=== PATIENT | male | born 1975 | race Caucasian/White ===

== ENCOUNTER 2017-03-01 18:24 | Emergency (ER) | payer OTHER ==
[~2017-03-01] VITALS: Ht 188 cm; Wt 109.0 kg
[~2017-03-01 18:24] MED LIST: AUG875 PO; HYDR-3498 PO; OMEP20TA55 PO
[2017-03-01 18:37] VITALS: Ht 188 cm; Wt 109.0 kg
[2017-03-01] MEDS ORDERED: IBUP-1542 PO (18:52)
--- NOTE | 2017-03-01 18:57 | ERD ---
ER Documentation Chief Complaint Date/Time DATE: 03/01/17 TIME: 18:54 Chief Complaint SORES ON TONGUE X 1 WEEK WITH BLEEDING AND PAIN HPI 31-year-old male presents to emergency department for complaints of tongue sores for 1 week. Patient smokes regularly. Patient denies hitting something new or different. Patient denies any fever or chills. Patient denies any sores in the throat. Patient denies any other symptoms. ROS All systems reviewed and are negative except as per history of present illness. Medications Home Meds Active Scripts Ibuprofen* (Motrin*) 600 Mg Tab, 600 MG PO Q6H Y for PAIN AND OR ELEVATED TEMP, #30 TAB Prov:MAI MCCLELLAN NP 03/01/17 Hydrocodone Bit/Acetaminophen (Anexsia 5-325 Mg Tablet) 1 Tab Tab, 1 TAB PO Q4H Y for Pain 1-5, #30 Prov:SAMANTHA POOL 06/27/15 Hydrocodone Bit/Acetaminophen (Anexsia 5-325 Mg Tablet) 1 Tab Tab, 2 TAB PO Q4H Y for Pain 6-10, #30 Prov:SAMANTHA POOL F 06/27/15 Omeprazole Magnesium (Prilosec OTC) 20 Mg Tablet.dr, 20 MG PO DAILY for 30 Days , TAB Prov:SAMANTHA POOL 06/27/15 Amoxicillin-Clavulanate K* (Augmentin*) 875 Mg Tab, 875 MG PO BID for 5 Days, TAB Prov:SAMANTHA POOL 06/27/15 Allergies Allergies: Coded Allergies: No Known Allergy (Unverified , 06/25/15) PMhx/Soc History of Surgery: Yes (nasal surgery when he was young) Anesthesia Reaction: No Hx 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 Disorder: No Hx Respiratory Disorders: No Hx Cardiac Disorders: No Hx Psychiatric Problems: No Hx Miscellaneous Medical Probl: No Hx Alcohol Use: Yes Hx Substance Use: No Hx Tobacco Use: Yes Smoking Status: Current every day smoker FmHx Family History: No coronary disease, No diabetes, No other Physical Exam Vitals Vital Signs Date Time Temp Pulse Resp B/P Pulse Ox O2 Delivery O2 Flow Rate FiO2 03/01/17 18:37 98.7 75 16 145/80 98 Physical Exam GENERAL: The patient is well developed and appropriate for usual state of health, in no apparent distress. HEENT: Atraumatic. Ears: Normal tympanic membrane, no erythema or bulging. No ear canal swelling. No ear discharge. Nose: normal nasal turbinates, no erythema or swelling. Normal nasal discharge. Throat: oropharynx clear. No tonsillar swelling or tonsillar exudates. No lymphadenopathy. Noted inflamed glands of the tongue. CHEST: Clear to auscultation bilaterally. There are no rales, wheezes or rhonchi. HEART: Regular rate and rhythm. No murmurs, clicks, rubs or gallops. No S3 or S4. ABDOMEN: Soft, nontender and nondistended. Good bowel sounds. No rebound or guarding. No gross peritonitis. No gross organomegaly or masses. No Andrade sign or McBurney point tenderness. BACK: No midline or flank tenderness. EXTREMITIES: Equal pulses bilaterally. There is no peripheral clubbing, cyanosis or edema. No focal swelling or erythema. Full range of motion. Grossly neurovascularly intact. NEURO: Alert and oriented. Cranial nerves 2-12 intact. Motor strength in all 4 extremities with 5/5 strength. Sensation grossly intact. Normal speech and gait. SKIN: There is no apparent rash or petechia. The skin is warm and dry. HEMATOLOGIC AND LYMPHATIC: There is no evidence of excessive bruising or lymphedema. No gross cervical, axillary, or inguinal lymphadenopathy. Procedures/MDM Medical decision making: Patient's sores in the tongue nonspecific at this time , no symptoms of leukoplakia, no symptoms of any fungal, thrush or acute bacterial infection. No symptoms of any acute bacterial pharyngitis, strep throat. Nose and distal area of section. Patient was given for ibuprofen for pain, is advised to see a ENT specialist for by several biopsy if not better. Patient was advised to return to emergency department for any worsening symptoms. Disposition: Home. Stable. Departure Diagnosis: Primary Impression: Sore in mouth Condition: Stable Patient Instructions: When Your Child Has Mouth Sores MAI MCCLELLAN NP Mar 01, 2017 18:57
== END 2017-03-01 19:11 | disposition home or self-care (01) ==
LOC: FTE 18:24
DX: K13.79 Other lesions of oral mucosa (principal); F17.210 Nicotine dependence, cigarettes, uncomplicated
CPT/HCPCS: 99283

== ENCOUNTER 2017-03-21 22:30 | Emergency (ER) | payer OTHER ==
[~2017-03-21] VITALS: Ht 182.9 cm; Wt 110.0 kg
[~2017-03-21 22:30] MED LIST changes: +IBUP-1542 PO
[2017-03-21 22:34] VITALS: Ht 182.9 cm; Wt 110.0 kg
[2017-03-21] MEDS ORDERED: morphine 4 MG/ML VIAL IV STA (23:32)
[2017-03-21] MEDS ORDERED: ONDANSETRON 4 MG INJ IV STA (23:32)
[2017-03-21] MEDS ORDERED: SOD CHLORIDE 0.9% 1,000 ML IV STA (23:32)
[2017-03-22] LABS: ADD SCAN DIFF NO
[2017-03-22 00:02] LABS: BASOPHILS % 0.4 % (0.0-2.0); EOSINOPHILS # 0.1 10^3/ul (0.0-0.5); HEMATOCRIT 41.7 % (42.0-52.0); HEMOGLOBIN 14.7 g/dl (14.0-18.0); LYMPHOCYTES % 38.5 % (15.0-51.0); MEAN CORPUSCULAR HEMOGLOBIN 32.7 pg (29.0-33.0); MEAN CORPUSCULAR HGB CONC 35.3 g/dl (32.0-37.0); MEAN CORPUSCULAR VOLUME 92.9 fl (82.0-101.0); MEAN PLATELET VOLUME 10.4 fl (7.4-10.4); MONOCYTE # 0.6 10^3/ul (0.3-0.9); MONOCYTES % 5.5 % (0.0-11.0); NEUTROPHIL # 5.7 10^3/ul (1.6-7.5); NEUTROPHILS % 54.1 % (39.0-77.0); PLATELET COUNT 214 10^3/UL (140-415); RED BLOOD COUNT 4.49 10^6/ul (4.70-6.10); RED CELL DISTRIBUTION WIDTH 11.9 % (11.5-14.5); WHITE BLOOD COUNT 10.5 10^3/ul (4.8-10.8)
[2017-03-22 00:23] LABS: ALBUMIN/GLOBULIN RATIO 1.56; BILIRUBIN,INDIRECT 0.4 mg/dl (0-1.1); BILIRUBIN,TOTAL 0.4 mg/dl (0.2-1.3); CALCIUM 10.3 mg/dl (8.4-10.2); CREATININE 0.87 mg/dl (0.61-1.24); POTASSIUM 3.9 mmol/L (3.5-5.1); TOTAL PROTEIN 8.2 g/dl (6.1-8.1)
--- NOTE | 2017-03-22 00:53 | RADRPT ---
PROCEDURE: US right upper quadrant CLINICAL INDICATION: Abdominal pain TECHNIQUE: Multiple real-time images were acquired of the patient's right upper abdomen utilizing a high resolution transducer. Technical note: The examination is limited because of the patient's large body habitus COMPARISON: Ultrasound 06/11/2015. CT scan 06/25/2015 FINDINGS: Liver: Increased echogenicity compatible with stable hepatic steatosis with mild hepatomegaly. No evidence of liver mass or ductal dilatation. Normal directional blood flow is seen within the patent main portal vein. The maximum dimension estimated at 19.3 cm . Gallbladder: Contracted with minimal sludge but no evidence of gallstones. No sonographic Andrade's sign is reported. Common bile duct: Normal; 5.9 mm. There is no evidence for choledocholithiasis. Right Kidney: Normal; maximum length measured at approximately 13.2 cm. Pancreas: Obscured by bowel gas. RPTAT:HJJR IMPRESSION: 1. Limited exam because of body habitus. 2. Stable hepatic steatosis and mild hepatomegaly compared to the studies of 06/11/2015 and 015. 3. Mild gallbladder sludge and gallbladder contraction without cholelithiasis or cholecystitis. Physician Tg Date Time Electronically viewed and signed by Physician Tg on 03/22/2017 00:52 JR/
[2017-03-22] MEDS ORDERED: KETOROLAC 30 MG INJ IV STA (01:05)
[2017-03-22] MEDS ORDERED: HYDR-906 PO (01:08)
[2017-03-22] MEDS ORDERED: IBUP-1542 PO (01:08)
[2017-03-22] MEDS ORDERED: ONDA4TAB14 PO (01:12)
--- NOTE | 2017-03-22 01:12 | ERD ---
ER Documentation Chief Complaint Date/Time DATE: 03/22/17 TIME: 01:10 Chief Complaint epigastric pain w/ vomiting x 3 days HPI Patient is a 41-year-old male who presents with epigastric pain with nausea and vomiting that began 3 days ago. Pain is worse after eating. Pain is intermittent and sharp. Denies any fever. Denies any dysuria hematuria or increased urinary frequency. Denies any diarrhea. ROS All systems reviewed and are negative except as per history of present illness. Medications Home Meds Active Scripts Hydrocodone/Acetaminophen ([place] 5-325 Tablet) 1 Each Tablet, 1 TAB PO Q6H Y for PAIN, #20 TAB Prov:KEHINDE LOMAX PA-C 03/22/17 Ibuprofen* (Motrin*) 600 Mg Tab, 600 MG PO Q6, #30 TAB Prov:KEHINDE LOMAX PA-C 03/22/17 Ibuprofen* (Motrin*) 600 Mg Tab, 600 MG PO Q6H Y for PAIN AND OR ELEVATED TEMP, #30 TAB Prov:MAI MCCLELLAN NP 03/01/17 Hydrocodone Bit/Acetaminophen (Anexsia 5-325 Mg Tablet) 1 Tab Tab, 1 TAB PO Q4H Y for Pain 1-5, #30 Prov:SAMANTHA POOL 06/27/15 Hydrocodone Bit/Acetaminophen (Anexsia 5-325 Mg Tablet) 1 Tab Tab, 2 TAB PO Q4H Y for Pain 6-10, #30 Prov:SAMANTHA POOL 06/27/15 Omeprazole Magnesium (Prilosec OTC) 20 Mg Tablet.dr, 20 MG PO DAILY for 30 Days , TAB Prov:SAMANTHA POOL 06/27/15 Amoxicillin-Clavulanate K* (Augmentin*) 875 Mg Tab, 875 MG PO BID for 5 Days, TAB Prov:SAMANTHA POOL 06/27/15 Allergies Allergies: Coded Allergies: No Known Allergy (Unverified , 06/25/15) PMhx/Soc History of Surgery: Yes (nasal surgery when he was young; ) Anesthesia Reaction: No Hx 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 Disorder: No Hx Respiratory Disorders: No Hx Cardiac Disorders: No Hx Psychiatric Problems: No Hx Miscellaneous Medical Probl: No Hx Alcohol Use: Yes Hx Substance Use: No Hx Tobacco Use: Yes Smoking Status: Current every day smoker Fmx Family History: No diabetes Physical Exam Vitals Vital Signs Date Time Temp Pulse Resp B/P Pulse Ox O2 Delivery O2 Flow Rate FiO2 03/21/17 22:34 98.6 77 20 140/81 100 Physical Exam General: well developed, well nourished, alert, nontoxic, no distress Head: normocephalic, atraumatic Neck: Supple, nontender, no lymphadenopathy, no midline tenderness Respiratory: Clear to auscaultation bilaterally, speaks in full sentences, no use of accesory muscles or labored breathing, no rales, ronchi, or wheezing Cardiovascular: RRR, No murmurs GI: soft, non distended, positive murphys sign, negative mcburneys point tenderness, no cva tenderness bilaterally, no rebound or guarding Back: no midline tenderness, no step offs or bony abnormalities, sensation to light touch in tact Result Diagram: 03/21/17 2340 03/21/17 2340 Results 24 hrs Laboratory Tests Test 03/21/17 23:40 White Blood Count 10.510^3/ul Red Blood Count 4.4910^6/ul Hemoglobin 14.7g/dl Hematocrit 41.7% Mean Corpuscular Volume 92.9fl Mean Corpuscular Hemoglobin 32.7pg Mean Corpuscular Hemoglobin Concent 35.3g/dl Red Cell Distribution Width 11.9% Platelet Count 59138^3/UL Mean Platelet Volume 10.4fl Neutrophils % 54.1% Lymphocytes % 38.5% Monocytes % 5.5% Eosinophils % 1.0% Basophils % 0.4% Nucleated Red Blood Cells % 0.0/100WBC Neutrophils # 5.710^3/ul Lymphocytes # 4.010^3/ul Monocytes # 0.610^3/ul Eosinophils # 0.110^3/ul Basophils # 0.010^3/ul Nucleated Red Blood Cells # 0.010^3/ul Sodium Level 146mmol/L Potassium Level 3.9mmol/L Chloride Level 104mmol/L Carbon Dioxide Level 29mmol/L Anion Gap 17 Blood Urea Nitrogen 13mg/dl Creatinine 0.87mg/dl Glucose Level 104mg/dl Calcium Level 10.3mg/dl Total Bilirubin 0.4mg/dl Direct Bilirubin 0.00mg/dl Indirect Bilirubin 0.4mg/dl Aspartate Amino Transf (AST/SGOT) 32IU/L Alanine Aminotransferase (ALT/SGPT) 54IU/L Alkaline Phosphatase 85IU/L Total Protein 8.2g/dl Albumin 5.0g/dl Globulin 3.20g/dl Albumin/Globulin Ratio 1.56 Lipase 101U/L Current Medications Medications (Trade) Dose Ordered Sig/Ciara Route PRN Reason Start Time Stop Time Status Last Admin Dose Admin Sodium Chloride (NS) 1,000 ml @ 1,000 mls/hr Q1H STAT IV 03/21/17 23:32 03/22/17 00:31 DC 03/21/17 23:48 Morphine Sulfate (morphine) 4 mg ONCE STAT IV 03/21/17 23:32 03/21/17 23:33 DC 03/21/17 23:48 Ondansetron HCl (Zofran Inj) 4 mg ONCE STAT IV 03/21/17 23:32 03/21/17 23:33 DC 03/21/17 23:48 Ketorolac Tromethamine (Toradol) 30 mg ONCE STAT IV 03/22/17 01:05 03/22/17 01:06 DC Procedures/MDM This patient has biliary colic. His vital signs are normal. His labs are normal. Ultrasound does show sludge without any evidence of cholecystitis. Patient was given prescription for pain medications and he was counseled on avoiding spicy and greasy food. Recommended this patient follow up with her primary care doctor within 48 hours or return to the emergency room for any worsening of symptoms. However this time I do believe there is suitable for outpatient management. I answered all their questions and they agreed with the plan and were discharged home. Departure Diagnosis: Primary Impression: Biliary colic Condition: Stable Patient Instructions: Biliary Colic With Gallstone (Confirmed) Additional Instructions: Call your primary care doctor TOMORROW for an appointment during the next 1-2 days.See the doctor sooner or return here if your condition worsens before your appointment time. KEHINDE LOMAX PA-C Mar 22, 2017 01:12
[2017-03-22 01:18] LABS: ADD UMIC YES; UR ASCORBIC ACID NEGATIVE (NEGATIVE); UR BILIRUBIN (Dip) NEGATIVE (NEGATIVE); UR BLOOD (Dip) 1+ mg/dL (NEGATIVE); UR CLARITY CLEAR (CLEAR); UR COLOR YELLOW (YELLOW); UR GLUCOSE (Dip) NEGATIVE (NEGATIVE); UR KETONES (Dip) NEGATIVE (NEGATIVE); UR LEUKOCYTE ESTERASE (Dip) NEGATIVE Leu/ul (NEGATIVE); UR MUCUS FEW /HPF (NONE SEEN); UR NITRITE (Dip) NEGATIVE (NEGATIVE); UR RBC 3 /HPF (0-5); UR SPECIFIC GRAVITY (Dip) 1.028 (1.003-1.030); UR TOTAL PROTEIN (Dip) NEGATIVE (NEGATIVE); UR UROBILINOGEN (Dip) NEGATIVE (NEGATIVE)
[2017-03-22 01:43] VITALS: BP 119/75; PULSE 64; RESP 18; TEMP 98.3
== END 2017-03-22 01:45 | disposition home or self-care (01) ==
LOC: FTE 22:30
DX: K80.50 Calculus of bile duct without cholangitis or cholecystitis without obstruction (principal); F17.210 Nicotine dependence, cigarettes, uncomplicated; R11.2 Nausea with vomiting, unspecified
CPT/HCPCS: 36415; 76705; 80053; 81001; 83690; 85025; 96374; 96375; J1885; J2270; J2405; J7030; Z7502

== ENCOUNTER 2017-04-26 19:14 | Emergency (ER) | payer OTHER ==
[~2017-04-26] VITALS: Ht 188 cm; Wt 104.5 kg
[~2017-04-26 19:14] MED LIST changes: +HYDR-906 PO; +ONDA4TAB14 PO
[2017-04-26 19:31] VITALS: Ht 188 cm; Wt 104.5 kg
[2017-04-26] MEDS ORDERED: KETOROLAC 60 MG INJ IM STA (19:48)
[2017-04-26] MEDS ORDERED: DIAZEPAM 5 MG TAB PO ONE (20:00)
--- NOTE | 2017-04-26 20:16 | RADRPT ---
PROCEDURE: XR Right Hand CLINICAL INDICATION: Fall TECHNIQUE: PA, oblique, and lateral radiographs were submitted. COMPARISON: None FINDINGS: Osseous structures: appear well mineralized and intact with no fracture or destructive process iden tified. Joint spaces: are well maintained, with no significant spurring, erosion or joint effusion evident. Soft tissues: appear unremarkable. IMPRESSION: Unremarkable right hand. Physician Federica Date Time Electronically viewed and signed by Duncan Guzman Physician on 04/26/2017 20:15 /
--- NOTE | 2017-04-26 20:18 | ERD ---
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 Patient states that he was trying to move something and had a fall on outstretched hand and had a left knee contusion. Patient states that he has restricted range of motion of his right hand. He denies any restricted range of motion of his left knee and back. He states that he has tried Tylenol and ibuprofen however denies any taking any medications today. He rates his moderate in severity. He denies any saddle anesthesia. Denies any bladder or bowel incontinence ROS All systems reviewed and are negative except as per history of present illness. Medications Home Meds Active Scripts Ondansetron (Ondansetron Odt) 4 Mg Tab.rapdis, 4 MG PO Q6H Y for NAUSEA AND/OR VOMITING, #20 TAB Prov:KEHINDE LOMAX PA-C 03/22/17 Hydrocodone/Acetaminophen ([place] 5-325 Tablet) 1 Each Tablet, 1 TAB PO Q6H Y for PAIN, #20 TAB Prov:KEHINDE LOMAX PA-C 03/22/17 Ibuprofen* (Motrin*) 600 Mg Tab, 600 MG PO Q6, #30 TAB Prov:KEHINDE LOMAX PA-C 03/22/17 Ibuprofen* (Motrin*) 600 Mg Tab, 600 MG PO Q6H Y for PAIN AND OR ELEVATED TEMP, #30 TAB Prov:MAI MCCLELLAN NP 03/01/17 Hydrocodone Bit/Acetaminophen (Anexsia 5-325 Mg Tablet) 1 Tab Tab, 1 TAB PO Q4H Y for Pain 1-5, #30 Prov:SAMANTHA POOL 06/27/15 Hydrocodone Bit/Acetaminophen (Anexsia 5-325 Mg Tablet) 1 Tab Tab, 2 TAB PO Q4H Y for Pain 6-10, #30 Prov:SAMANTHA POOL 06/27/15 Omeprazole Magnesium (Prilosec OTC) 20 Mg Tablet.dr, 20 MG PO DAILY for 30 Days , TAB Prov:SAMANTHA POOL 06/27/15 Amoxicillin-Clavulanate K* (Augmentin*) 875 Mg Tab, 875 MG PO BID for 5 Days, TAB Prov:SAMANTHA POOL 06/27/15 Allergies Allergies: Coded Allergies: No Known Allergy (Unverified , 04/26/17) PMhx/Soc Medical and Surgical Hx: pt denies Medical Hx History of Surgery: Yes (vasectomy, felicity) Anesthesia Reaction: No Hx 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 Disorder: No Hx Respiratory Disorders: No Hx Cardiac Disorders: No Hx Psychiatric Problems: No Hx Miscellaneous Medical Probl: No Hx Alcohol Use: Yes (occassional) Hx Substance Use: No Hx Tobacco Use: Yes Smoking Status: Current every day smoker Physical Exam Vitals Vital Signs Date Time Temp Pulse Resp B/P Pulse Ox O2 Delivery O2 Flow Rate FiO2 04/26/17 19:31 97.6 68 22 148/82 99 Physical Exam GENERAL: WD/WN, in no apparent distress, non-toxic appearing HENT: NC/AT EYES: Conjunctiva normal NECK: Supple PULM: Normal labored breathing CV: Good capillary refill GI: Non-distended, no guarding BACK: no deformities noted, normal spinal curvature, TTP on left lumbar region, non-tender on spine midline, full range of motion EXT: No clubbing, cyanosis, or edema, full range of lower extremities, tender palpation to the left knee Tenderness to palpation of the right palmar region, restricted range of motion to the right hand NEURO: Moves on all fours, sensation intact, normal gait SKIN: intact PSYCH: Normal mood Results 24 hrs Current Medications Medications (Trade) Dose Ordered Sig/Ciara Route PRN Reason Start Time Stop Time Status Last Admin Dose Admin Diazepam (Valium) 10 mg ONCE ONCE PO 04/26/17 20:00 04/26/17 20:01 DC 04/26/17 20:02 Ketorolac Tromethamine (Toradol) 60 mg ONCE STAT IM 04/26/17 19:48 04/26/17 19:50 DC 04/26/17 20:06 Procedures/MDM This is a 41-year-old male presenting to the emergency department complaining of right hand, left lumbar, and left knee pain status post ground-level fall. I doubt that patient has any left knee and back fracture or dislocation due to physical examination. An x-ray of the right hand has been done and did not show any evidence of fracture dislocation. In the ED patient was given Toradol for anti-inflammatories and Valium for muscle relaxation. Patient is neurovascular intact pre-and post treatment. He stable to be discharged home with prescription for ibuprofen and Flexeril. Discussed with him to follow-up with primary care physician. Discussed return to the ER for any worsening signs or symptoms. Patient understands and agrees with this plan Departure Diagnosis: Primary Impression: Fall Additional Impressions: Back pain Hand contusion Condition: Stable RADHA GARCÍA PA-C Apr 26, 2017 20:18
[2017-04-26] MEDS ORDERED: NAPR-688 PO (20:20)
[2017-04-26] MEDS ORDERED: CYCL-319 PO (20:20)
[2017-04-26 20:26] VITALS: BP 132/65; PULSE 68; RESP 18
== END 2017-04-26 20:30 | disposition home or self-care (01) ==
LOC: FTE 19:14
DX: S39.92XA Unspecified injury of lower back, initial encounter (principal); S60.221A Contusion of right hand, initial encounter; F17.210 Nicotine dependence, cigarettes, uncomplicated; W18.39XA Other fall on same level, initial encounter; Y92.9 Unspecified place or not applicable
CPT/HCPCS: 73130; 96372; J1885; Z7502; Z7610

== ENCOUNTER 2017-07-19 19:02 | Emergency (ER) | payer OTHER ==
[~2017-07-19] VITALS: Ht 188 cm; Wt 108.5 kg
[~2017-07-19 19:02] MED LIST changes: +CYCL-319 PO; +NAPR-688 PO
[2017-07-19 19:05] VITALS: Ht 188 cm; Wt 108.5 kg
[2017-07-19] MEDS ORDERED: FLUORESCEIN STRIP LEFT EYE ONE (20:30)
[2017-07-19] MEDS ORDERED: TETRACAINE 0.5% 4 ML OPH LEFT EYE ONE (20:30)
--- NOTE | 2017-07-19 21:14 | ERD ---
ER Documentation Chief Complaint Chief Complaint pain left hand/arm x 1 hour, denies injury HPI 41-year-old male presenting with a chief complaint of left forearm/hand pain described as stinging 1-1/2 hours. Patient denies trauma. States he was getting out of the pool when he started feeling the pain. Denies dizziness, loss of range of motion, chest pain, shortness of breath, similar symptoms in the past. No aggravating or alleviating factors. Patient has no other complaints and describes no other associated manifestations. Nursing notes have been reviewed and are consistent with history given. ROS All systems reviewed and are negative except as per history of present illness. Medications Home Meds Active Scripts Cyclobenzaprine Hcl* (Cyclobenzaprine Hcl*) 10 Mg Tablet, 10 MG PO TID, #30 TAB Prov:RADHA GARCÍA PA-C 04/26/17 Naproxen* (Naproxen*) 500 Mg Tablet, 500 MG PO BID, #30 TAB Prov:RADHA GARCÍA PA-C 04/26/17 Ondansetron (Ondansetron Odt) 4 Mg Tab.rapdis, 4 MG PO Q6H Y for NAUSEA AND/OR VOMITING, #20 TAB Prov:KEHINDE LOMAX PA-C 03/22/17 Hydrocodone/Acetaminophen ([place] 5-325 Tablet) 1 Each Tablet, 1 TAB PO Q6H Y for PAIN, #20 TAB Prov:KEHINDE LOMAX PA-C 03/22/17 Ibuprofen* (Motrin*) 600 Mg Tab, 600 MG PO Q6, #30 TAB Prov:KEHINDE LOMAX PA-C 03/22/17 Ibuprofen* (Motrin*) 600 Mg Tab, 600 MG PO Q6H Y for PAIN AND OR ELEVATED TEMP, #30 TAB Prov:MAI MCCLELLAN NP 03/01/17 Hydrocodone Bit/Acetaminophen (Anexsia 5-325 Mg Tablet) 1 Tab Tab, 1 TAB PO Q4H Y for Pain 1-5, #30 Prov:SAMANTHA POOL 06/27/15 Hydrocodone Bit/Acetaminophen (Anexsia 5-325 Mg Tablet) 1 Tab Tab, 2 TAB PO Q4H Y for Pain 6-10, #30 Prov:SAMANTHA POOL 06/27/15 Omeprazole Magnesium (Prilosec OTC) 20 Mg Tablet.dr, 20 MG PO DAILY for 30 Days , TAB Prov:SAMANTHA POOL 06/27/15 Amoxicillin-Clavulanate K* (Augmentin*) 875 Mg Tab, 875 MG PO BID for 5 Days, TAB Prov:SAMANTHA POOL 06/27/15 Allergies Allergies: Coded Allergies: No Known Allergy (Unverified , 07/19/17) PMhx/Soc History of Surgery: Yes (vasectomy, felicity) Anesthesia Reaction: No Hx 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 Disorder: No Hx Respiratory Disorders: No Hx Cardiac Disorders: No Hx Psychiatric Problems: No Hx Miscellaneous Medical Probl: No Hx Alcohol Use: Yes (occassional) Hx Substance Use: No Hx Tobacco Use: Yes Smoking Status: Current every day smoker Physical Exam Vitals Vital Signs Date Time Temp Pulse Resp B/P Pulse Ox O2 Delivery O2 Flow Rate FiO2 07/19/17 19:05 97.2 72 20 148/82 99 Physical Exam Const: Well-appearing 41-year-old male no acute distress Head: Atraumatic Eyes: Normal Conjunctiva ENT: Normal External Ears, Nose and Mouth. Neck: Full range of motion..~ No meningismus. Resp: Clear to auscultation bilaterally Cardio: Regular rate and rhythm, no murmurs. Radial pulses 2+ bilaterally. Cap refill less than 2 seconds. Abd: Soft, non tender, non distended. Normal bowel sounds Skin: No petechiae or rashes Back: No midline or flank tenderness Ext: No cyanosis, or edema. Negative Phalen's sign, negative Tinel sign. Negative East sign. [employer] strength equal. Full range of motion. Pain reproduced with palpation of the elbow and flexion extension rotation of the elbow. Neur: Awake and alert Psych: Normal Mood and Affect Results 24 hrs Current Medications Medications (Trade) Dose Ordered Sig/Ciara Route PRN Reason Start Time Stop Time Status Last Admin Dose Admin Tetracaine HCl (Tetracaine 0.5% Steri-Unit Gabriella) 1 drop ONCE ONCE LEFT EYE 07/19/17 20:30 07/19/17 20:34 DC Fluorescein Sodium (Wsquk-N-Bjwdr) 1 strip ONCE ONCE LEFT EYE 07/19/17 20:30 07/19/17 20:34 DC Procedures/MDM 41-year-old male presenting to hours status post left hand numbness without trauma as described in history and physical examination. X-ray of the elbow was obtained read by the radiologist and given the following impression: Unremarkable. Patient has refused pain medications at this time. I have no concern for bony pathology, compartment syndrome, or other limb threatening pathologies. Most likely diagnosis is arm numbness and tingling of unknown etiology. Patient will be given a list of neurologist specialists. I have spoke with the patient regarding their condition and future management. They have verbally responded that they understand their status and treatment plan. The patients vitals are stable, and their current condition is appropriate for discharge. The patient will be given discharge instructions with return precautions. Departure Diagnosis: Primary Impression: Pain of hand Laterality: left Qualified Code: M79.642 - Pain of left hand Condition: Stable Additional Instructions: Follow up with your PCP within the next 1-3 days for a more thorough evaluation and a possible referral to a specialist. Return the the emergency department immediately if symptoms worsen or change. If you have any questions regarding medications, ask your pharmacist or us before you leave. If any adverse reactions occur while taking your medications, discontinue the treatment and return to the emergency department immediately. Take your medications as directed, and complete the entire course of treatment. BAM US PA-C Jul 19, 2017 21:14
--- NOTE | 2017-07-19 22:21 | RADRPT ---
PROCEDURE: XR Left Elbow. CLINICAL INDICATION: Medial left elbow reference marker directed towards the medial aspect of the le ft elbow. TECHNIQUE: AP, lateral and oblique views of the left elbow performed. COMPARISON: None. FINDINGS: There is normal mineralization and alignment. No acute fracture or osseous lesion is identified. There is no significant joint space narrowing. The soft tissues are unremarkable. IMPRESSION: Unremarkable examination. RPTAT: [facility] Physician Rosa Date Time Electronically viewed and signed by Physician Rosa on 07/19/2017 22:21 RS/
--- NOTE | 2017-07-19 22:38 | RADRPT ---
PROCEDURE: XR Cervical Spine. CLINICAL INDICATION: Trauma. TECHNIQUE: AP, lateral and odontoid views of the cervical spine were performed. COMPARISON: There are no similar studies submitted for comparison. FINDINGS: Vertebral body stature and alignment maintained. There is no evidence of fracture or subluxation. The dens is intact. There is no prevertebral soft tissue swelling. There is slight reversal of the n ormal cervical lordosis which is likely positional. IMPRESSION: No fracture or subluxation. RPTAT: HIKT .Dany Garcia MD, MD Date Time Electronically viewed and signed by .Dany Garcia MD, on 07/19/2017 22:38 .T/
== END 2017-07-19 23:04 | disposition home or self-care (01) ==
LOC: FTE 19:02
DX: M79.642 Pain in left hand (principal); F17.210 Nicotine dependence, cigarettes, uncomplicated
CPT/HCPCS: 72050

== ENCOUNTER 2017-07-20 01:09 | Observation (INO) | payer OTHER ==
[~2017-07-20] VITALS: Ht 185.4 cm; Wt 106.5 kg
[2017-07-20] VITALS (9 sets, daily range): BP systolic 95–128; BP diastolic 55–76; PULSE 60–69; RESP 16–22; TEMP 98.4; Ht 185.4 cm; Wt 106.5 kg
[2017-07-20] MEDS ORDERED: morphine 4 MG/ML VIAL IV STA (01:44)
[2017-07-20] MEDS ORDERED: ONDANSETRON 4 MG INJ IV STA (01:44)
--- NOTE | 2017-07-20 02:18 | RADRPT ---
PROCEDURE: XR Chest. CLINICAL INDICATION: Chest pain. TECHNIQUE: Single frontal chest x-ray. COMPARISON: None. FINDINGS: The cardiomediastinal silhouette is unremarkable. There is no congestive heart failure.. No focal i nfiltrate is seen. There is no pleural effusion. There is no pneumothorax. The osseous structures are unremarkable. IMPRESSION: 1. No active disease. RPTAT: HMVK .Esteban Calixto MD, MD Date Time Electronically viewed and signed by .Esteban Calixto MD, MD on 07/20/2017 02:17 .K/
[2017-07-20 02:23] LABS: BASOPHILS % 0.3 % (0.0-2.0); EOSINOPHILS # 0.1 10^3/ul (0.0-0.5); EOSINOPHILS % 1.1 % (0.0-7.0); HEMATOCRIT 41.4 % (42.0-52.0); HEMOGLOBIN 13.9 g/dl (14.0-18.0); LYMPHOCYTES # 3.2 10^3/ul (0.8-2.9); LYMPHOCYTES % 32.3 % (15.0-51.0); MEAN CORPUSCULAR HEMOGLOBIN 31.2 pg (29.0-33.0); MEAN CORPUSCULAR HGB CONC 33.6 g/dl (32.0-37.0); MEAN CORPUSCULAR VOLUME 92.8 fl (82.0-101.0); MEAN PLATELET VOLUME 10.4 fl (7.4-10.4); MONOCYTE # 0.5 10^3/ul (0.3-0.9); MONOCYTES % 4.8 % (0.0-11.0); NEUTROPHIL # 6.1 10^3/ul (1.6-7.5); NEUTROPHILS % 61.2 % (39.0-77.0); PLATELET COUNT 189 10^3/UL (140-415); RED BLOOD COUNT 4.46 10^6/ul (4.70-6.10); RED CELL DISTRIBUTION WIDTH 12.3 % (11.5-14.5); WHITE BLOOD COUNT 9.9 10^3/ul (4.8-10.8)
[2017-07-20 02:47] LABS: ALANINE AMINOTRANSFERASE 56 IU/L (13-69); ALBUMIN 4.8 g/dl (3.3-4.9); ALKALINE PHOSPHATASE 69 IU/L (42-121); ANION GAP 15 (8-16); ASPARTATE AMINO TRANSFERASE 32 IU/L (15-46); BILIRUBIN,INDIRECT 0.5 mg/dl (0-1.1); BILIRUBIN,TOTAL 0.5 mg/dl (0.2-1.3); BLOOD UREA NITROGEN 8 mg/dl (7-20); CALCIUM 9.5 mg/dl (8.4-10.2); CARBON DIOXIDE 29 mmol/L (21-31); CHLORIDE 105 mmol/L (97-110); CREATININE 0.86 mg/dl (0.61-1.24); GLUCOSE 93 mg/dl (70-220); POTASSIUM 3.9 mmol/L (3.5-5.1); SODIUM 145 mmol/L (135-144)
[2017-07-20 02:58] LABS: B-TYPE NATRIURETIC PEPTIDE 17 PG/ML (0-125)
[2017-07-20 03:03] LABS: TROPONIN-I < 0.012 ng/ml (0.00-0.12)
--- NOTE | 2017-07-20 03:23 | ERD ---
ER Documentation Chief Complaint Chief Complaint chest pain x 1 hour HPI This is a 41-year-old male who comes in with complaints of chest pain for 1 hour. Denies any fevers chills nausea vomiting. Denies any other current complaints. Pain is mild to moderate intensity, left-sided, crushing, substernal with no exacerbating relieving factors. Pain started around 10:00 at night. Patient has no history of cardiac disorder but does have first-order family with cardiac disorder ROS All systems reviewed and are negative except as per history of present illness. Medications Home Meds Active Scripts Cyclobenzaprine Hcl* (Cyclobenzaprine Hcl*) 10 Mg Tablet, 10 MG PO TID, #30 TAB Prov:RADHA GARCÍA PA-C 04/26/17 Naproxen* (Naproxen*) 500 Mg Tablet, 500 MG PO BID, #30 TAB Prov:RADHA GARCÍA PA-C 04/26/17 Ondansetron (Ondansetron Odt) 4 Mg Tab.rapdis, 4 MG PO Q6H Y for NAUSEA AND/OR VOMITING, #20 TAB Prov:KEHINDE LOMAX PA-C 03/22/17 Hydrocodone/Acetaminophen ([place] 5-325 Tablet) 1 Each Tablet, 1 TAB PO Q6H Y for PAIN, #20 TAB Prov:KEHINDE LOMAX PA-C 03/22/17 Ibuprofen* (Motrin*) 600 Mg Tab, 600 MG PO Q6, #30 TAB Prov:KEHINDE LOMAX PA-C 03/22/17 Ibuprofen* (Motrin*) 600 Mg Tab, 600 MG PO Q6H Y for PAIN AND OR ELEVATED TEMP, #30 TAB Prov:MAI MCCLELLAN NP 03/01/17 Hydrocodone Bit/Acetaminophen ([place] 5-325 Mg Tablet) 1 Tab Tab, 1 TAB PO Q4H Y for Pain 1-5, #30 Prov:SAMANTHA POOL 06/27/15 Hydrocodone Bit/Acetaminophen ([place] 5-325 Mg Tablet) 1 Tab Tab, 2 TAB PO Q4H Y for Pain 6-10, #30 Prov:SAMANTHA POOL 06/27/15 Omeprazole Magnesium (Prilosec OTC) 20 Mg Tablet.dr, 20 MG PO DAILY for 30 Days , TAB Prov:SAMANTHA POOL 06/27/15 Amoxicillin-Clavulanate K* (Augmentin*) 875 Mg Tab, 875 MG PO BID for 5 Days, TAB Prov:SAMANTHA POOL 06/27/15 Allergies Allergies: Coded Allergies: No Known Allergy (Unverified , 07/19/17) PMhx/Soc History of Surgery: Yes (vasectomy, felicity) Anesthesia Reaction: No Hx 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 Disorder: No Hx Respiratory Disorders: No Hx Cardiac Disorders: No Hx Psychiatric Problems: No Hx Miscellaneous Medical Probl: No Hx Alcohol Use: Yes (occassional) Hx Substance Use: No Hx Tobacco Use: Yes Smoking Status: Current every day smoker Physical Exam Vitals Vital Signs Date Time Temp Pulse Resp B/P Pulse Ox O2 Delivery O2 Flow Rate FiO2 07/20/17 01:32 98.4 65 20 134/88 98 Physical Exam Const: [] Head: Atraumatic Eyes: Normal Conjunctiva ENT: Normal External Ears, Nose and Mouth. Neck: Full range of motion..~ No meningismus. Resp: Clear to auscultation bilaterally Cardio: Regular rate and rhythm, no murmurs Abd: Soft, non tender, non distended. Normal bowel sounds Skin: No petechiae or rashes Back: No midline or flank tenderness Ext: No cyanosis, or edema Neur: Awake and alert Psych: Normal Mood and Affect Result Diagram: 07/20/17 0200 07/20/17 0200 Results 24 hrs Laboratory Tests Test 07/20/17 02:00 White Blood Count 9.910^3/ul Red Blood Count 4.4610^6/ul Hemoglobin 13.9g/dl Hematocrit 41.4% Mean Corpuscular Volume 92.8fl Mean Corpuscular Hemoglobin 31.2pg Mean Corpuscular Hemoglobin Concent 33.6g/dl Red Cell Distribution Width 12.3% Platelet Count 52675^3/UL Mean Platelet Volume 10.4fl Neutrophils % 61.2% Lymphocytes % 32.3% Monocytes % 4.8% Eosinophils % 1.1% Basophils % 0.3% Nucleated Red Blood Cells % 0.0/100WBC Neutrophils # 6.110^3/ul Lymphocytes # 3.210^3/ul Monocytes # 0.510^3/ul Eosinophils # 0.110^3/ul Basophils # 0.010^3/ul Nucleated Red Blood Cells # 0.010^3/ul Sodium Level 145mmol/L Potassium Level 3.9mmol/L Chloride Level 105mmol/L Carbon Dioxide Level 29mmol/L Anion Gap 15 Blood Urea Nitrogen 8mg/dl Creatinine 0.86mg/dl Glucose Level 93mg/dl Calcium Level 9.5mg/dl Total Bilirubin 0.5mg/dl Direct Bilirubin 0.00mg/dl Indirect Bilirubin 0.5mg/dl Aspartate Amino Transf (AST/SGOT) 32IU/L Alanine Aminotransferase (ALT/SGPT) 56IU/L Alkaline Phosphatase 69IU/L Troponin I < 0.012ng/ml B-Type Natriuretic Peptide 17PG/ML Total Protein 8.0g/dl Albumin 4.8g/dl Globulin 3.20g/dl Albumin/Globulin Ratio 1.50 Current Medications Medications (Trade) Dose Ordered Sig/Ciara Route PRN Reason Start Time Stop Time Status Last Admin Dose Admin Morphine Sulfate (morphine) 4 mg ONCE STAT IV 07/20/17 01:44 07/20/17 01:45 DC 07/20/17 02:19 Ondansetron HCl (Zofran Inj) 4 mg ONCE STAT IV 07/20/17 01:44 07/20/17 01:45 DC 07/20/17 02:19 Procedures/MDM EKG: Rate/Rhythm: [Normal Sinus Rhythm] QRS, ST, T-waves: [No changes consistent w/ acute ischemia] Impression: [No evidence of ischemia or arrhythmia] Chest X-ray 1V Interpreted by me: Soft Tissue: No acute abnormalities Bones: No acute abnormalities Mediastinum/Cardiac Silhouette/Lungs: [No acute abnormalities] Patient's symptoms are concerning for cardiac cause will require inpatient workup and continuous monitoring. Further w/u for ischemia, arrhythmia, PE or dissection will be deferred to the inpatient team. Accepting Care Team: Current data and ongoing care discussed. Time: 3:30 AM Primary Provider: IPA physician Consulting: [XOXOXO] Outstanding Data: none Departure Diagnosis: Primary Impression: Chest pain Chest pain type: unspecified Qualified Code: R07.9 - Chest pain, unspecified type Condition: Serious CON JOHNSON Jul 20, 2017 03:23
[2017-07-20] MEDS ORDERED: NITROGLYCERIN (SL) 0.4 MG TAB SL PRN (06:30)
[2017-07-20] MEDS ORDERED: NACL 0.9% 3 ML SYG IV SCH (06:30)
[2017-07-20] MEDS ORDERED: ACETAMINOPHEN 325 MG TAB PO PRN (06:30)
[2017-07-20] MEDS ORDERED: ONDANSETRON 4 MG TAB PO PRN (06:30)
[2017-07-20] MEDS ORDERED: DOCUSATE SODIUM 100 MG CAP PO PRN (06:30)
[2017-07-20] MEDS: FAMOTIDINE 20 MG TAB PO SCH ×2 (08:54→20:29)
[2017-07-20] MEDS: ENOXAPARIN 40 MG/0.4 ML SYG SC SCH (08:55)
[2017-07-20] MEDS: NICOTINE (14 MG/24 HR) PATCH TRANSDERM SCH (09:25)
[2017-07-20 12:01] LABS: CREATINE KINASE 130 IU/L (23-200)
[2017-07-20 12:17] LABS: CK-MB 0.56 ng/ml (0.0-2.4); TROPONIN-I < 0.012 ng/ml (0.00-0.12)
[2017-07-20 14:25] LABS: D-DIMER < 220.00 ng/ml (<460)
[2017-07-20 17:12] LABS: CREATINE KINASE 117 IU/L (23-200)
[2017-07-20 17:47] LABS: CK-MB 0.51 ng/ml (0.0-2.4); TROPONIN-I < 0.012 ng/ml (0.00-0.12)
[2017-07-20] MEDS: HYDROCODONE/APAP (5/325) TAB PO PRN (18:23)
--- NOTE | 2017-07-20 19:39 | HP ---
Date/Time of Note Date/Time of Note DATE: 07/20/17 TIME: 19:39 Assessment/Plan VTE Prophylaxis VTE Prophylaxis Intervention: LMWH Lines/Catheters [facility] Saline Lock Urinary Cath still in place: No Assessment/Plan Assessment/Plan 41-year-old male with: 1. Left-sided chest pain, unclear regarding the quality of the pain, patient describing a severe crushing chest pressure but also stabbing. Pain is very minimal currently. Cardiac enzymes have been negative 3 at least. Echocardiogram was done will be read in the morning. Lexiscan will be ordered. N.p.o. after midnight. Continue baby aspirin. Check fasting lipid panel with a.m. labs. 2. Heavy tobacco use: Patient was counseled to quit, agree with nicotine patch. Prophylaxis: Lovenox for DVT prophylaxis, Pepcid for GI prophylaxis. Disposition: Lexiscan in a.m., follow-up 2D echocardiogram. Hopefully if stress test negative patient will be discharged home. HPI/ROS Admit Date/Time Admit Date/Time Jul 20, 2017 at 05:32 Hx of Present Illness Chief complaint: Left-sided chest pain History of presenting illness: This is a 41-year-old male with a history of tobacco use, heavy, presented in the emergency department with complaint of left -sided chest pressure for 1 day. The patient reports that he first presented to the emergency department earlier yesterday with primary complaint of left arm tingling this discomfort from the elbow down with pain of his of his thumb and at the base of his thumb. He had x-ray of his left elbow which was negative for acute findings. He had x-ray of the cervical spine which was also negative for acute findings. He was given NSAIDs and discharge home. He took the ibuprofen at home and apparently when he went to bed he had an episode of severe left sided pain, felt like someone punched him, he describes it as crushing pressure but also stabbing sensation. He got dyspneic with the episode of pain, no diaphoresis, no dizziness, no nausea, no vomiting. He is localizing it on the left lower chest left upper quadrant area. No fevers, no chills. He returned to the emergency department, cardiac enzymes were negative there, EKG unremarkable, since he is a heavy smoker he was admitted for rule out acute coronary syndrome. No hypertension, diabetes mellitus per history. 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 He is admitted to telemetry, plan for Lexiscan stress test tomorrow to complete his workup. ROS Constitutional: no complaints Eyes: no complaints ENT: no complaints Respiratory: no complaints Cardiovascular: chest pain (Left-sided) Gastrointestinal: no complaints Genitourinary: no complaints Musculoskeletal: no complaints, other (Left hand/thumb pain) Skin: no complaints Neurologic: no complaints Endocrine: no complaints Lymphatic: no complaints Psychological: no complaints PMH/Family/Social Past Medical History Medical History: no pertinent history Past Surgical History Past Surgical Hx: appendectomy (2014) Family History Significant Family History: no pertinent family hx Social History Alcohol Use: occasionally (Up to 4 beers) Smoking Status: Current every day smoker (1 pack a day for the past 28 years) Drug Use: none Exam/Review of Systems Vital Signs Vitals Vital Signs Date Time Temp Pulse Resp B/P Pulse Ox O2 Delivery O2 Flow Rate FiO2 07/20/17 19:18 98.9 65 16 128/76 98 07/20/17 16:19 Room Air Exam Constitutional: alert, oriented, well developed Respiratory: clear to auscultation, normal air movement Cardiovascular: nl pulses, other (No reproducible chest wall pain), regular rate and rhythm Gastrointestinal: non-tender, soft Musculoskeletal: nl extremities to inspection, other (Tenderness to palpation base of left thumb) Extremities: normal pulses, other (No edema, clubbing or cyanosis) 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: 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 TEACHER 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, nl mental status, nl speech, nl strength Labs Result Diagram: 07/20/17 02007/20/17 0200 Medications Medications Current Medications Ondansetron HCl (Zofran Tab) 4 mg Q6H PRN PO NAUSEA AND/OR VOMITING; Start at 06:30 Aspirin (Aspirin) 81 mg DAILY PO ; Start 07/21/17 at 09:00 Nitroglycerin (Nitroglycerin (Sl Tab) 0.4 Mg) 1 tab Q5M PRN SL CHEST PAIN Last administered on 07/20/17 11:24; Admin Dose 1 TAB; Start 07/20/17 at 06:30 Acetaminophen (Tylenol Tab) 650 mg Q6H PRN PO PAIN LEVEL 1-3 OR FEVER Last administered on 07/20/17 14:38; Admin Dose 650 MG; Start 07/20/17 at 06:30 Acetaminophen/ Hydrocodone Bitart ([place] (5/325)) 1 tab Q6H PRN PO PAIN LEVEL 4 -6 Last administered on 07/20/17 18:23; Admin Dose 1 TAB; Start 07/20/17 at 06:30 Docusate Sodium (Colace) 100 mg Q12H PRN PO CONSTIPATION; Start 07/20/17 at 06 :30 Famotidine (Pepcid) 20 mg Q12 PO Last administered on 07/20/17 08:54; Admin Dose 20 MG; Start 07/20/17 at 09:00 Enoxaparin Sodium (Lovenox) 40 mg DAILY SC Last administered on 07/20/17 08: 55; Admin Dose 40 MG; Start 07/20/17 at 09:00 Nicotine (Nicoderm 14 Mg/ 24hr) 1 patch DAILY TRANSDERM Last administered on 09:25; Admin Dose 1 PATCH; Start 07/20/17 at 09:00 Procedures Procedures PROCEDURE: XR Chest. CLINICAL INDICATION: Chest pain. TECHNIQUE: Single frontal chest x-ray. COMPARISON: None. FINDINGS: The cardiomediastinal silhouette is unremarkable. There is no congestive heart failure.. No focal infiltrate is seen. There is no pleural effusion. There is no pneumothorax. The osseous structures are unremarkable. IMPRESSION: 1. No active disease. RPTAT: HMVK .Esteban Calixto MD, MD Date Time Electronically viewed and signed by .Esteban Calixto MD, MD on 07/20/2017 02:17 EKG: Normal sinus rhythm, no acute ST or T-wave abnormalities, no acute or chronic ischemic changes. SAMANTHA POOL Jul 20, 2017 19:39
[2017-07-21] VITALS (8 sets, daily range): BP systolic 108–115; BP diastolic 65–71; PULSE 54–61; RESP 20
[2017-07-21] MEDS: HYDROCODONE/APAP (5/325) TAB PO PRN (07:26)
[2017-07-21 07:33] LABS: BASOPHILS % 0.2 % (0.0-2.0); EOSINOPHILS # 0.1 10^3/ul (0.0-0.5); EOSINOPHILS % 0.9 % (0.0-7.0); HEMATOCRIT 40.5 % (42.0-52.0); LYMPHOCYTES # 2.6 10^3/ul (0.8-2.9); LYMPHOCYTES % 29.9 % (15.0-51.0); MEAN CORPUSCULAR HEMOGLOBIN 31.8 pg (29.0-33.0); MEAN CORPUSCULAR HGB CONC 34.6 g/dl (32.0-37.0); MEAN PLATELET VOLUME 10.7 fl (7.4-10.4); MONOCYTE # 0.5 10^3/ul (0.3-0.9); MONOCYTES % 5.7 % (0.0-11.0); NEUTROPHIL # 5.6 10^3/ul (1.6-7.5); NEUTROPHILS % 63.1 % (39.0-77.0); PLATELET COUNT 180 10^3/UL (140-415); RED CELL DISTRIBUTION WIDTH 11.9 % (11.5-14.5); WHITE BLOOD COUNT 8.8 10^3/ul (4.8-10.8)
[2017-07-21 07:51] LABS: CALCIUM 9.3 mg/dl (8.4-10.2); CREATININE 0.86 mg/dl (0.61-1.24); POTASSIUM 4.2 mmol/L (3.5-5.1)
[2017-07-21 08:10] LABS: CHOL/HDL RATIO 5.7 RATIO; MAGNESIUM 1.8 mg/dl (1.7-2.5); PHOSPHORUS 3.9 mg/dl (2.5-4.9)
[2017-07-21] MEDS ORDERED: ASPIRIN 81 MG TAB PO SCH (09:00)
[2017-07-21] MEDS: FAMOTIDINE 20 MG TAB PO SCH (09:03)
[2017-07-21] MEDS: NICOTINE (14 MG/24 HR) PATCH TRANSDERM SCH (09:04)
[2017-07-21] MEDS: ENOXAPARIN 40 MG/0.4 ML SYG SC SCH (09:10)
[2017-07-21] MEDS ORDERED: REGADENOSON 0.4 MG/5 ML SYG ONE (11:39)
--- NOTE | 2017-07-21 12:33 | PN ---
Date/Time of Note Date/Time of Note DATE: 07/21/17 TIME: 12:30 Assessment/Plan VTE Prophylaxis VTE Prophylaxis Intervention: SCD's Lines/Catheters IV Catheter Type (from Nrs): Saline Lock Urinary Cath still in place: No Assessment/Plan Assessment/Plan 41-year-old male with: 1. Left-sided chest pain, unclear regarding the quality of the pain, patient describing a severe crushing chest pressure but also stabbing. Pain is very minimal this a.m. again. Cardiac enzymes have been negative 3 at least. Echocardiogram done and reading pending. Ongoing Lexiscan Continue baby aspirin and was started on Lipitor based on fasting lipid panel today. 2. Heavy tobacco use: Patient was counseled to quit, agree with nicotine patch. Prophylaxis: Lovenox for DVT prophylaxis, Pepcid for GI prophylaxis. Disposition: Lexiscan ongoing, if negative, plan to discharge home with follow- up with primary care physician. 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 He has full range of motion however. Stress test is being done, if negative he will be discharged home with outpatient follow-up with his PCP. Exam/Review of Systems Vital Signs Vitals Vital Signs Date Time Temp Pulse Resp B/P Pulse Ox O2 Delivery O2 Flow Rate FiO2 07/21/17 11:04 98.1 62 20 115/65 98 07/20/17 16:19 Room Air Intake and Output 07/20/17 07/20/17 07/21/17 15:00 23:00 07:00 Intake Total 300 ml Balance 300 ml Exam Constitutional: alert, oriented, well developed Respiratory: clear to auscultation, normal air movement Cardiovascular: nl pulses, regular rate and rhythm Gastrointestinal: non-tender, soft Musculoskeletal: nl extremities to inspection, nl gait and stance Extremities: normal pulses, other (No edema, clubbing or cyanosis) 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: SOLE ASSESSOR 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, nl mental status, nl speech, nl strength Results Result Diagram: 07/21/17 0652 07/21/17 0652 Results 24 hrs Laboratory Tests Test 07/20/17 13:39 07/20/17 16:41 07/21/17 06:52 D-Dimer < 220.00 D-Dimer Comment Creatine Kinase 117 Creatine Kinase Index 0.4 Creatinine Kinase MB (Mass) 0.51 Troponin I < 0.012 White Blood Count 8.8 Red Blood Count 4.40 L Hemoglobin 14.0 Hematocrit 40.5 L Mean Corpuscular Volume 92.0 Mean Corpuscular Hemoglobin 31.8 Mean Corpuscular Hemoglobin Concent 34.6 Red Cell Distribution Width 11.9 Platelet Count 180 Mean Platelet Volume 10.7 H Neutrophils % 63.1 Lymphocytes % 29.9 Monocytes % 5.7 Eosinophils % 0.9 Basophils % 0.2 Nucleated Red Blood Cells % 0.0 Neutrophils # 5.6 Lymphocytes # 2.6 Monocytes # 0.5 Eosinophils # 0.1 Basophils # 0.0 Nucleated Red Blood Cells # 0.0 Sodium Level 142 Potassium Level 4.2 Chloride Level 106 Carbon Dioxide Level 27 Anion Gap 13 Blood Urea Nitrogen 10 Creatinine 0.86 Glucose Level 91 Hemoglobin A1c 5.0 Calcium Level 9.3 Phosphorus Level 3.9 Magnesium Level 1.8 Triglycerides Level 207 H Cholesterol Level 143 LDL Cholesterol, Calculated 77 HDL Cholesterol 25 L Cholesterol/HDL Ratio 5.7 Medications Medications Current Medications Ondansetron HCl (Zofran Tab) 4 mg Q6H PRN PO NAUSEA AND/OR VOMITING; Start at 06:30 Aspirin (Aspirin) 81 mg DAILY PO Last administered on 07/21/17 09:04; Admin Dose 81 MG; Start 07/21/17 at 09:00 Nitroglycerin (Nitroglycerin (Sl Tab) 0.4 Mg) 1 tab Q5M PRN SL CHEST PAIN Last administered on 07/20/17 11:24; Admin Dose 1 TAB; Start 07/20/17 at 06:30 Acetaminophen (Tylenol Tab) 650 mg Q6H PRN PO PAIN LEVEL 1-3 OR FEVER Last administered on 07/20/17 14:38; Admin Dose 650 MG; Start 07/20/17 at 06:30 Acetaminophen/ Hydrocodone Bitart ([place] (5/325)) 1 tab Q6H PRN PO PAIN LEVEL 4 -6 Last administered on 07/21/17 07:26; Admin Dose 1 TAB; Start 07/20/17 at 06:30 Docusate Sodium (Colace) 100 mg Q12H PRN PO CONSTIPATION; Start 07/20/17 at 06 :30 Famotidine (Pepcid) 20 mg Q12 PO Last administered on 07/21/17 09:03; Admin Dose 20 MG; Start 07/20/17 at 09:00 Enoxaparin Sodium (Lovenox) 40 mg DAILY SC Last administered on 07/21/17 09: 10; Admin Dose 40 MG; Start 07/20/17 at 09:00 Nicotine (Nicoderm 14 Mg/ 24hr) 1 patch DAILY TRANSDERM Last administered on 09:04; Admin Dose 1 PATCH; Start 07/20/17 at 09:00 Atorvastatin Calcium (Lipitor) 40 mg HS PO ; Start 07/21/17 at 21:00 SAMANTHA POOL Jul 21, 2017 12:33
--- NOTE | 2017-07-21 13:37 | RADRPT ---
PROCEDURE: Nuclear medicine myocardial stress and rest scan. CLINICAL INDICATION: Chest pain. TECHNIQUE: The patient was stressed with 0.4 mg IV Lexiscan. 10.7 mCi technetium 99m Tetrofosmin (Myoview) was administered rest. 31.8 mCi technetium 99m Tetrofosmin (Myoview) was administered du ring stress. Images were obtained and reconstructed in the short axis, horizontal long axis, and ve rtical long axis. Gated images were obtained and ejection fraction was calculated. COMPARISON: No prior study is available for comparison. FINDINGS: The stress and rest images demonstrate normal uptake throughout. There is no fixed abnormality or r eversible abnormality. There is no evidence of transient ischemic dilatation. Wall motion is normal. There is normal wall thickening during systole. Ejection fraction at stress is 50%. IMPRESSION: 1. No evidence of stress induced myocardial ischemia. 2. Ejection fraction at stress is 50%. RPTAT: QQ .Cali Bryant MD, MD Date Time Electronically viewed and signed by .Cali Bryant MD, on 07/21/2017 13:36 .R/
--- NOTE | 2017-07-21 14:37 | RADRPT ---
Echocardiogram Report Patient Name: MEGAN DUNLAP Gender: Male Date: 1975 Study Date: 20-Jul-2017 Fish Peddler: ATTILA Location: 3301 Ref. Physician: ALMA JONES Quality: Good Procedures: Transthoracic echocardiogram with complete 2D, M-Mode, and doppler examination. Indications: Chest Pain. 2D/M Mode Doppler Measurement Value Normal Ranges Measurement Value Normal Ranges AoR Diam MM 3.1 cm JUAN Vmax 3.2 cm2 ACS MM 2.0 cm JUAN VTI 3.2 cm2 LA/Ao MM 1.0 AV Peak Smooth 1.1 m/sec LA Dimen MM 3.2 cm AV Peak PG 4.5 mmHg LVIDd 2D 5.2 3.5 - 5.6 cm LVOT Peak Smooth 1.0 m/sec LVIDs 2D 3.5 2.1 - 4.1 cm LVOT Peak PG 4.0 mmHg LVPWd 2D 1.1 0.6 - 1.1 cm MV E Peak Smooth 0.9 m/sec IVSd 2D 1.1 0.6 - 1.1 cm MV A Peak Smooth 0.7 m/sec EDV 2D 128.2 cm3 MV E/A 1.3 ESV 2D 41.7 cm3 MV Decel Time 197 msec EF 2D 60.0 50.0 - 65.0 % MV Decel [place] 4 LVOT Diam 2.1 cm MV E/A 1.3 Findings Left Ventricle: Normal left ventricular systolic function. Normal left ventricular cavity size. Normal left ventricular wall thickness. Ejection fraction is visually estimated at 60 %. Right Ventricle: Normal right ventricular size. Normal right ventricular systolic function. Left Atrium: The left atrium is normal in size. Right Atrium: The right atrium is normal in size. Mitral Valve: Normal appearance and function of the mitral valve with trace physiologic regurgitation. Aortic Valve: Normal appearance of the aortic valve. No significant aortic stenosis or insufficiency. Tricuspid Valve: Normal appearance of the tricuspid valve. Unable to obtain RVSP due to minimal presence of tricuspid regurgitation. Pulmonic Valve: Normal pulmonic valve appearance. Pericardium: Normal pericardium with no significant pericardial effusion. Aorta: Normal aortic root. IVC: The IVC is not well visualized. Conclusions 1.Normal left ventricular systolic function. Normal left ventricular cavity size. Normal left ventricular wall thickness. Ejection fraction is visually estimated at 60 %. 2.Normal right ventricular size. Normal right ventricular systolic function. 3.The left atrium is normal in size. 4.The right atrium is normal in size. 5.No significant valvular stenosis or regurgitation seen. 6.Normal pericardium with no significant pericardial effusion. Electronically Signed By: Esteban Peterson 21-Jul-2017 14:37:13 -0700 Patient Name: MEGAN DUNLAP Study Date: 20-Jul-2017 [id number]
--- NOTE | 2017-07-21 15:11 | PDOCDIS ---
Discharge Instructions CONDITION Patient Condition: Good HOME CARE INSTRUCTIONS: Diet Instructions: Low Fat /Cholesterol ACTIVITY: Activity Restrictions: No Restrictions FOLLOW UP/APPOINTMENTS Follow-up Plan Follow up with PCP within 1 week re left arm pain SAMANTHA POOL Jul 21, 2017 15:11
[2017-07-21] MEDS ORDERED: ASPI81TA3 PO (15:13)
--- NOTE | 2017-07-21 15:16 | CONS ---
Date/Time of Note Date/Time of Note DATE: 07/21/17 TIME: 15:12 Assessment/Plan Assessment/Plan Additional Assessment/Plan Arm and chest pain Preserved ejection fraction Tobacco use -Serial cardiac enzymes remain negative, d-dimer is negative, echocardiogram with preserved ejection fraction, ECG with no significant ischemic abnormalities. Patient has been scheduled for nuclear cardiac perfusion study. Given negative for any ischemia or infarct, no further inpatient cardiac workup needed at the current time. Smoking cessation, evaluate other noncardiac causes of patient's symptoms. Consultation Date/Type/Reason Admit Date/Time Jul 20, 2017 at 05:32 Type of Consultation: cv Reason for Consultation Chest pain Hx of Present Illness This is a 41-year-old male with no significant past medical history who presents with left hand, arm and chest pain. Pain began approximately 2 days ago with left hand pain that was worse with arm movements. Pain progressed and radiated up the arm to the elbow and up to the shoulder and chest. Pain at times was worse with deep breathing. There was no associated shortness of breath, sweating or diaphoresis. Pain progressively worsened and for this reason came to the emergency room for further evaluation and care. Patient denies chest pain with activity or shortness of breath. 12 point review of systems was performed with all pertinent positives and negatives mentioned above and all else is negative Eyes: no complaints ENT: no complaints Respiratory: no complaints Cardiovascular: chest pain (Left-sided) Gastrointestinal: no complaints Genitourinary: no complaints Musculoskeletal: no complaints, other (Left hand/thumb pain) Skin: no complaints Neurologic: no complaints Lymphatic: no complaints Psychological: no complaints Past Medical History Medical History: no pertinent history Past Surgical History Past Surgical Hx: appendectomy (2014) Social History Alcohol Use: occasionally (Up to 4 beers) Smoking Status: Current every day smoker (1 pack a day for the past 28 years) Drug Use: none 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 Exam/Review of Systems Vital Signs Vitals Vital Signs Date Time Temp Pulse Resp B/P Pulse Ox O2 Delivery O2 Flow Rate FiO2 07/21/17 11:04 98.1 62 20 115/65 98 07/20/17 16:19 Room Air Intake and Output 07/20/17 07/20/17 07/21/17 15:00 23:00 07:00 Intake Total 300 ml Balance 300 ml Exam No apparent distress Constitutional: alert, oriented Head: normocephalic Respiratory: clear to auscultation, normal air movement Cardiovascular: other (S1-S2 heard), regular rate and rhythm Gastrointestinal: bowel sounds, non-tender, other (No guarding), soft Extremities: other (No edema) Results Result Diagram: 07/21/17 0652 07/21/17 0652 Results 24 hrs Laboratory Tests Test 07/20/17 16:41 07/21/17 06:52 Creatine Kinase 117 Creatine Kinase Index 0.4 Creatinine Kinase MB (Mass) 0.51 Troponin I < 0.012 White Blood Count 8.8 Red Blood Count 4.40 L Hemoglobin 14.0 Hematocrit 40.5 L Mean Corpuscular Volume 92.0 Mean Corpuscular Hemoglobin 31.8 Mean Corpuscular Hemoglobin Concent 34.6 Red Cell Distribution Width 11.9 Platelet Count 180 Mean Platelet Volume 10.7 H Neutrophils % 63.1 Lymphocytes % 29.9 Monocytes % 5.7 Eosinophils % 0.9 Basophils % 0.2 Nucleated Red Blood Cells % 0.0 Neutrophils # 5.6 Lymphocytes # 2.6 Monocytes # 0.5 Eosinophils # 0.1 Basophils # 0.0 Nucleated Red Blood Cells # 0.0 Sodium Level 142 Potassium Level 4.2 Chloride Level 106 Carbon Dioxide Level 27 Anion Gap 13 Blood Urea Nitrogen 10 Creatinine 0.86 Glucose Level 91 Hemoglobin A1c 5.0 Calcium Level 9.3 Phosphorus Level 3.9 Magnesium Level 1.8 Triglycerides Level 207 H Cholesterol Level 143 LDL Cholesterol, Calculated 77 HDL Cholesterol 25 L Cholesterol/HDL Ratio 5.7 Medications Medications Current Medications Ondansetron HCl (Zofran Tab) 4 mg Q6H PRN PO NAUSEA AND/OR VOMITING; Start at 06:30 Aspirin (Aspirin) 81 mg DAILY PO Last administered on 07/21/17 09:04; Admin Dose 81 MG; Start 07/21/17 at 09:00 Nitroglycerin (Nitroglycerin (Sl Tab) 0.4 Mg) 1 tab Q5M PRN SL CHEST PAIN Last administered on 07/20/17 11:24; Admin Dose 1 TAB; Start 07/20/17 at 06:30 Acetaminophen (Tylenol Tab) 650 mg Q6H PRN PO PAIN LEVEL 1-3 OR FEVER Last administered on 07/20/17 14:38; Admin Dose 650 MG; Start 07/20/17 at 06:30 Acetaminophen/ Hydrocodone Bitart ([place] (5/325)) 1 tab Q6H PRN PO PAIN LEVEL 4 -6 Last administered on 07/21/17 07:26; Admin Dose 1 TAB; Start 07/20/17 at 06:30 Docusate Sodium (Colace) 100 mg Q12H PRN PO CONSTIPATION; Start 07/20/17 at 06 :30 Famotidine (Pepcid) 20 mg Q12 PO Last administered on 07/21/17 09:03; Admin Dose 20 MG; Start 07/20/17 at 09:00 Enoxaparin Sodium (Lovenox) 40 mg DAILY SC Last administered on 07/21/17 09: 10; Admin Dose 40 MG; Start 07/20/17 at 09:00 Nicotine (Nicoderm 14 Mg/ 24hr) 1 patch DAILY TRANSDERM Last administered on 09:04; Admin Dose 1 PATCH; Start 07/20/17 at 09:00 Atorvastatin Calcium (Lipitor) 40 mg HS PO ; Start 07/21/17 at 21:00 Procedures Procedures ECG demonstrates sinus rhythm, normal QRS duration, no significant ST abnormalities Esteban Peterson DO Jul 21, 2017 15:16
[2017-07-21] MEDS ORDERED: ATORVASTATIN 40 MG TAB PO SCH (21:00)
[2017-07-22] MEDS ORDERED: INFLUENZA VIRUS VACCINE 0.5 ML (DISPENSING) IM* ONE (09:00)
--- NOTE | 2017-07-23 14:44 | EN ---
Date/Time of Note Date/Time of Note DATE: 07/23/17 TIME: 14:42 Event Note Cardiology Cardiology Event Note Lexiscan nuclear ECG report 07/21/2017 This is a 41-year-old male with symptoms of chest pain Baseline ECG sinus rhythm at 64 bpm, nonspecific ST abnormalities Baseline blood pressure 122/78 Lexiscan was a medicine as per protocol Symptoms of shortness of breath and chest pain which resolved in recovery Peak heart rate 84 Peak blood pressure 132/78 ECG no significant changes ECG interpretation nonischemic The nuclear portion will be interpreted by radiology colleagues. Esteban Peterson DO Jul 23, 2017 14:44
== END 2017-07-21 17:00 | disposition home or self-care (01) ==
LOC: E/R 01:09 → MS3 05:32 → TEL 17:28
PROVIDERS: ADMIT Internal Medicine; ATTEND Internal Medicine
DX: R07.9 Chest pain, unspecified (principal); Z72.0 Tobacco use; Z98.52 Vasectomy status
CPT/HCPCS: 36415; 71010; 78452; 80048; 80053; 80061; 82550; 82553; 83036; 83735; 83880; 84100; 84484; 85025; 85378; 93005; 93017; 93306; 96374; 96375; A9500; A9505; J1650; J2270; J2405; J2785; Z7500; Z7502; Z7610; 99217; G0378

== ENCOUNTER 2018-05-14 05:51 | Emergency (ER) | END 2018-05-14 07:18 | disposition home or self-care (01) ==

== ENCOUNTER 2018-05-15 09:15 | Emergency (ER) | END 2018-05-15 11:25 | disposition home or self-care (01) ==

== ENCOUNTER 2018-10-10 18:28 | Emergency (ER) | payer SELFPAY ==
[~2018-10-10] VITALS: Ht 188 cm; Wt 106.7 kg
[~2018-10-10 18:28] MED LIST changes: +AMOX500C2 PO; +ASPI-831 PO; -AUG875 PO; -CYCL-319 PO; +FAMO-96 PO; -HYDR-3498 PO; +HYDR-4011 PO; -HYDR-906 PO; -IBUP-1542 PO; +IBUP800T48 PO; -NAPR-688 PO; +NPH10OT RIGHT EAR; -OMEP20TA55 PO; -ONDA4TAB14 PO; +UDMYL PO
[2018-10-10 18:39] VITALS: BP 139/81; PULSE 102; RESP 20; Ht 188 cm; Wt 106.7 kg
[2018-10-10] MEDS ORDERED: BACITRACIN 0.9 GM OINT ONE (23:05)
== END 2018-10-10 19:15 | disposition left against medical advice (07) ==
LOC: FTE 18:28
DX: Z53.21 Procedure and treatment not carried out due to patient leaving prior to being seen by health care provider (principal)

== ENCOUNTER 2018-11-15 19:19 | Emergency (ER) | payer OTHER ==
[~2018-11-15] VITALS: Ht 188 cm; Wt 107.1 kg
[2018-11-15 19:31] VITALS: Ht 188 cm; Wt 107.1 kg
[2018-11-16] MEDS ORDERED: CIPR7.5D RIGHT EAR (02:03)
[2018-11-16] MEDS ORDERED: AMOX1TAB10 PO (02:03)
[2018-11-16] MEDS ORDERED: PRED20TA PO (02:03)
[2018-11-16] MEDS ORDERED: IBUP-1542 PO (02:03)
[2018-11-16 02:17] VITALS: BP 119/75; PULSE 65; RESP 18
--- NOTE | 2018-11-16 02:19 | ERD ---
ER Documentation Chief Complaint Chief Complaint right ear ache/infection x 1 month HPI 42-year-old male presents to emergency department for complaints of right ear pain that started 1 month ago, actually saw specialist, was given an ointment, continues to have the pain, noted some discharge from right ear, complains of pain and swelling in the inner ear, throbbing pain, 6/10 scale, not better or worse with anything. Patient denies any fever or chills. Patient denies any other symptoms. ROS All systems reviewed and are negative except as per history of present illness. Medications Home Meds Active Scripts Amoxicillin/Potassium Clav (Amox-Clav 875-125 mg Tablet) 875-125 mg Tab, 1 TAB PO BID for 7 Days, #14 TAB Prov:MAI MCCLELLAN NP 11/16/18 Ibuprofen* (Motrin*) 600 Mg Tab, 600 MG PO Q6H PRN for PAIN AND OR ELEVATED TEMP, #30 TAB Prov:MAI MCCLELLAN NP 11/16/18 Prednisone* (Prednisone*) 20 Mg Tab, 60 MG PO DAILY for 3 Days, TAB Prov:MAI MCCLELLAN NP 11/16/18 Ciprofloxacin Hcl/Dexameth (Ciprodex Otic Suspension) 7.5 Ml Drops.susp, 4 DROP RIGHT EAR BID for 7 Days, EA Prov:MAI MCCLELLAN NP 11/16/18 Hydrocodone/Acetaminophen ([place] 5-325 Tablet) 1 Each Tablet, 1 TAB PO Q6H PRN for PAIN, #15 TAB Prov:BAM DUBOSE DO 05/15/18 Ibuprofen* (Motrin*) 800 Mg Tab, 800 MG PO Q8 for pain, #30 TAB Prov:BAM DUBOSE DO 18 Magaldrate/Simethicone* (Mag-Al Plus Suspension*) 30 Ml Oral.susp, 30 ML PO Q6H PRN for GASTROINTESTINAL UPSET for 5 Days, ML Prov:KEHINDE LOMAX PA-C 05/14/18 Famotidine* (Pepcid*) 20 Mg Tablet, 20 MG PO BID, #60 TAB Prov:KEHINDE LOMAX PA-C 05/14/18 Neomycin/Polymyxin/Hydrocort* (Cortisporin* Otic) 10 Ml Susp, 4 DROP RIGHT EAR QID for 7 Days, EA Prov:KEHINDE LOMAX GLEN 05/14/18 Amoxicillin* (Amoxicillin*) 500 Mg Cap, 500 MG PO TID for 7 Days, CAP Prov:KEHINDE LOMXA GLEN 05/14/18 Aspirin (Aspirin) 81 Mg Chew, 81 MG PO DAILY for 30 Days, TAB OTC Prov:SAMANTHA POOL 07/21/17 Allergies Allergies: Coded Allergies: No Known Allergy (Unverified , 11/15/18) PMhx/Soc Medical and Surgical Hx: pt denies Medical Hx, pt denies Surgical Hx History of Surgery: No Anesthesia Reaction: No Hx 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 Disorder: No Hx Respiratory Disorders: No Hx Cardiac Disorders: No Hx Psychiatric Problems: No Hx Miscellaneous Medical Probl: No Hx Alcohol Use: No Hx Substance Use: No Hx Tobacco Use: No Smoking Status: Never smoker FmHx Family History: No diabetes, No coronary disease, No other Physical Exam Vitals Vital Signs Date Temp Pulse Resp B/P (MAP) Pulse Ox O2 O2 Flow FiO2 Time Delivery Rate 11/15/18 97.9 78 18 135/72 97 19:31 (93) Physical Exam GENERAL: The patient is well developed and appropriate for usual state of [facility], in no apparent distress. HEENT: Atraumatic. Ears: Normal tympanic membrane, no erythema or bulging. Right ear canal noted to be erythematous and swollen with whitish discharge. Left ear canal normal. Nose: normal nasal turbinates, no erythema or swelling. Normal nasal discharge. Throat: oropharynx clear. No tonsillar swelling or tonsillar exudates. No lymphadenopathy. CHEST: Clear to auscultation bilaterally. There are no rales, wheezes or rhonchi. HEART: Regular rate and rhythm. No murmurs, clicks, rubs or gallops. No S3 or S4. ABDOMEN: Soft, nontender and nondistended. Good bowel sounds. No rebound or guarding. No gross peritonitis. No gross organomegaly or masses. No Andrade sign or McBurney point tenderness. BACK: No midline or flank tenderness. EXTREMITIES: Equal pulses bilaterally. There is no peripheral clubbing, cyanosis or edema. No focal swelling or erythema. Full range of motion. Grossly neurovascularly intact. NEURO: Alert and oriented. Cranial nerves 2-12 intact. Motor strength in all 4 extremities with 5/5 strength. Sensation grossly intact. Normal speech and gait. SKIN: There is no apparent rash or petechia. The skin is warm and dry. HEMATOLOGIC AND LYMPHATIC: There is no evidence of excessive bruising or lymphedema. No gross cervical, axillary, or inguinal lymphadenopathy. Procedures/MDM Medical decision making: Patient symptoms is likely consistent with otitis externa, no symptoms of otitis media or mastoiditis. No foreign body. No TM perforation. No symptoms of any malignant otitis. No symptoms of any cellulitis. Prescription was given for Ciprodex, prednisone, Augmentin, ibuprofen, is advised to follow-up with primary care doctor in 2-3 days for reevaluation of her symptoms. Patient was advised to return to emergency department Disposition: Home. Stable. Disclaimer: Inadvertent spelling and grammatical errors are likely due to [employer]/dictation software use and do not reflect on the overall quality of patient care. Also, please note that the electronic time recorded on this note does not necessarily reflect the actual time of the patient encounter. Departure Diagnosis: Primary Impression: Otitis externa Otitis externa type: unspecified type Chronicity: acute Laterality: right Qualified Codes: H60.501 - Unspecified acute noninfective otitis externa, right ear Condition: Stable Patient Instructions: External Ear Infection (Adult) MAI MCCLELLAN NP Nov 16, 2018 02:19
== END 2018-11-16 02:18 | disposition home or self-care (01) ==
LOC: FTE 19:19
DX: H60.501 Unspecified acute noninfective otitis externa, right ear (principal); Z79.82 Long term (current) use of aspirin
CPT/HCPCS: 99283

== ENCOUNTER 2019-06-14 17:36 | Emergency (ER) | payer OTHER ==
[~2019-06-14] VITALS: Wt 108.0 kg
[~2019-06-14 17:36] MED LIST changes: +AMOX1TAB10 PO; +CIPR7.5D RIGHT EAR; +IBUP-1542 PO; +PRED20TA PO
[2019-06-14 17:41] VITALS: Wt 108.0 kg
[2019-06-14] MEDS ORDERED: ONDANSETRON (ODT) 4 MG TAB ODT STA (17:58)
[2019-06-14] MEDS ORDERED: HYDROCODONE/APAP (10/325) TAB PO ONE (18:00)
[2019-06-14 19:42] VITALS: BP 118/85; PULSE 78; RESP 19
== END 2019-06-14 19:44 | disposition home or self-care (01) ==
LOC: E/R 17:36
DX: M54.12 Radiculopathy, cervical region (principal); Z79.82 Long term (current) use of aspirin
CPT/HCPCS: 72040; Z7502; Z7610